=== PATIENT | female | born 1995 | race American Indian/Alaskan Native ===

== ENCOUNTER 2018-06-26 12:39 | Emergency (ER) | payer OTHER ==
--- NOTE | 2018-06-26 13:03 | Emergency Department Report ---
Blank Doc - Documentation Documentation: This is a 22-year-old female that presents with lips swelling. STated has all ergic reastion last week and was treated but symptoms has not resolved. Patient denies any SOB or any other angioedema. Exam: no angioedema noted. Uvula midline. No swelling in lips noted. No rash. This initial assessment/diagnostic orders/clinical plan/treatment(s) is/are subject to change based on patient's health status, clinical progression and re- assessment by fellow clinical providers in the ED. Further treatment and workup at subsequent clinical providers discretion. Patient/guardians urged not to elope from the ED as their condition may be serious if not clinically assessed and managed. Initial orders include: 1- Patient sent to [facility] for further evaluation and treatment
[2018-06-26] MEDS ORDERED: BENADRYL PO ONE (14:01)
[2018-06-26] MEDS ORDERED: DECADRON IM ONE (14:01)
[2018-06-26] MEDS ORDERED: PEPCID PO ONE (14:01)
--- NOTE | 2018-06-26 14:01 | Emergency Department Report ---
HPI - General Chief Complaint: Allergic Reaction Time Seen by Provider: 06/26/18 13:01 - HPI HPI: This is a 22-year-old female who presents to ED complaining of lip swelling that occurred this morning. Patient states she's been doing this for the past week. Patient states that she recently had a root canal at the dentist was given some antibiotics which she is currently taking. Patient states to get his antibiotics for a week now. Patient states that she's just been taking Benadryl to help with the allergies with those symptoms and help. Patient states her lips where shoulder when she woke up this morning now resolved. She denies throat pain, swelling or difficulty swallowing. She also denies any rash ED Past Medical Hx - Past Medical History Previous Medical History?: No - Surgical History Past Surgical History?: No - Social History Smoking Status: Current Some Day Smoker Substance Use Type: Alcohol - Medications Home Medications: Home Medications Medication Instructions Recorded Confirmed Last Taken Type predniSONE [Deltasone] 20 mg PO QDAY #5 tab 06/21/18 Unknown Rx hydrOXYzine HCL [Atarax] 25 mg PO QHS #20 tablet 06/26/18 Unknown Rx ED Review of Systems ROS: Stated complaint: ALLERGIC REACTION/SWELLING Other details as noted in HPI Comment: All other systems reviewed and negative Physical Exam - Physical Exam Vital Signs: Vital Signs 06/26/18 13:02 Temperature 98 F Pulse Rate 83 Respiratory 16 Rate Blood Pressure 149/77 O2 Sat by Pulse 97 Oximetry Physical Exam: GENERAL: Alert and oriented x3, no apparent distress, Normal Gait, atraumatic. HEAD: Head is normocephalic and a-traumatic. EYES: Extra ocular muscles are intact. Pupils are equal, round, and reactive to light and accommodation. NOSE: Nose symetrical, Nontender,Nares appeared normal. MOUTH:Mouth is well hydrated and without lesions. Tonsils nonerythematous or swollen, Uvula midline, Tongue not elevated. Mucous membranes are moist. Posterior pharynx clear, no exudate or lesions. Patent airways. NECK: Supple. Non edematous, No lymphadenopathy or thyromegaly. No C-spine tenderness SKIN: Warm and dry, No lesions, No ulceration or induration present. ED Course Vital Signs 06/26/18 13:02 Temperature 98 F Pulse Rate 83 Respiratory 16 Rate Blood Pressure 149/77 O2 Sat by Pulse 97 Oximetry ED Medical Decision Making - Medical Decision Making 22-year-old female presents with a angioedema that's now resolved. Temperature IM and Benadryl given in ED. Disposition patient to follow up with dentist as scheduled. Discussed the patient It is septic and antibiotics based on the dentist approval. Discussed the symptoms, such due to medication as she is currently taken or an effect of the dental broken out that she had done. Vital signs are normal she is in no acute or respiratory distress she understands instructions and will follow-up. Critical care attestation.: If time is entered above; I have spent that time in minutes in the direct care of this critically ill patient, excluding procedure time. ED Disposition Clinical Impression: Angioedema of lips Disposition: DC- TO HOME OR SELFCARE Is pt being admited?: No Does the pt Need Aspirin: No Condition: Stable Instructions: Angioedema (ED) Additional Instructions: Make sure to follow up with the primary care physician as discussed. Take all your medications as you've been prescribed. If you have any worsening symptoms or develop new symptoms please return to ED immediately. Prescriptions: hydrOXYzine HCL [Atarax] 25 mg PO QHS #20 tablet Referrals: NILTON ST MD [Staff Physician] - 3-5 Days Forms: Accompanied Note, Work/School Release Form(ED) Time of Disposition: 14:36
[2018-06-26 15:35] VITALS: BP 132/74
== END 2018-06-26 15:01 | disposition home or self-care (01) ==
LOC: ED 12:39
DX: T78.3XXA Angioneurotic edema, initial encounter (principal); X58.XXXA Exposure to other specified factors, initial encounter; F17.200 Nicotine dependence, unspecified, uncomplicated
CPT/HCPCS: 96372; 99282; J1100